=== PATIENT | female | born 1935 | race Caucasian/White ===

== ENCOUNTER 2016-02-21 13:45 | Inpatient (IN) | payer MEDICARE, OTHER ==
[~2016-02-21] VITALS: Ht 162.6 cm; Wt 58.8 kg
[2016-02-21 14:55] VITALS: BP_SYST 140; RESP 16; TEMP 99.1
[2016-02-21 15:02] VITALS: Ht 162.6 cm; Wt 58.8 kg
[2016-02-21] MEDS ORDERED: Furosemide 20 MG/2 ML VIAL IV ONE (15:30)
[2016-02-21] MEDS ORDERED: NEB-ALBUTEROL 2.5 MG/3 ML INH ONE (17:00)
[2016-02-21] MEDS: NEB-ALBUTEROL 2.5 MG/3 ML INH SCH ×2 (17:13→23:31)
[2016-02-21] MEDS ORDERED: KCL CR 20 MEQ TAB PO ONE (19:20)
[2016-02-21 20:08] VITALS: BP_SYST 139; RESP 22; TEMP 98.3
[2016-02-21] MEDS: METHYLPRED SOD SUCC 40 MG VIAL IV SCH ×2 (20:11→23:59)
[2016-02-21] MEDS: SPIRONOLACTONE 25 MG TAB PO SCH (20:12)
[2016-02-21] MEDS: METOPROLOL XL 25 MG TAB PO SCH (20:17)
[2016-02-21] MEDS: LISINOPRIL 5 MG TAB PO SCH (20:17)
[2016-02-21] MEDS: ASPIRIN EC 81 MG TAB PO SCH (20:18)
[2016-02-21] MEDS: LEVOFLOXACIN 750 MG/150 ML 150 ML IV SCH (21:17)
[2016-02-21] MEDS: NEB-BUDESONIDE 0.25 MG INH SCH (23:31)
[2016-02-21 23:42] VITALS: RESP 18
[2016-02-22] VITALS (8 sets, daily range): BP systolic 111–136; RESP 16–20; TEMP 98.5–98.8
[2016-02-22] MEDS: LORAZEPAM 0.5 MG TAB PO PRN ×2 (00:30→23:54)
[2016-02-22] MEDS: NEB-BUDESONIDE 0.25 MG INH SCH ×2 (07:23→20:07)
[2016-02-22] MEDS: NEB-ALBUTEROL 2.5 MG/3 ML INH SCH ×4 (07:23→23:15)
[2016-02-22] MEDS: SPIRONOLACTONE 25 MG TAB PO SCH (08:25)
[2016-02-22] MEDS: METOPROLOL XL 25 MG TAB PO SCH (08:25)
[2016-02-22] MEDS: LISINOPRIL 5 MG TAB PO SCH (08:25)
[2016-02-22] MEDS: ASPIRIN EC 81 MG TAB PO SCH (08:25)
[2016-02-22] MEDS: METHYLPRED SOD SUCC 40 MG VIAL IV SCH ×4 (08:25→23:54)
[2016-02-22] MEDS: LEVOFLOXACIN 750 MG/150 ML 150 ML IV SCH ×2 (08:26→13:10)
[2016-02-22] MEDS: Furosemide 20 MG/2 ML VIAL IV SCH ×3 (08:26→17:51)
[2016-02-22] MEDS ORDERED: MISSING DOSE XX ONE (10:35)
[2016-02-22] MEDS ORDERED: AZITHROMYCIN 500 MG in SODIUM CHLORIDE 0.9% 250 ML IV ONE (10:45)
[2016-02-23] VITALS (7 sets, daily range): BP systolic 109–129; RESP 16–20; TEMP 97.5–98.7
[2016-02-23] MEDS: ACETAMINOPHEN 325 MG TAB PO PRN (00:46)
[2016-02-23] MEDS: NEB-ALBUTEROL 2.5 MG/3 ML INH SCH ×2 (07:28→15:10)
[2016-02-23] MEDS: NEB-BUDESONIDE 0.25 MG INH SCH ×2 (07:28→19:16)
[2016-02-23] MEDS: ASPIRIN EC 81 MG TAB PO SCH (09:23)
[2016-02-23] MEDS: LISINOPRIL 5 MG TAB PO SCH (09:23)
[2016-02-23] MEDS: AZITHROMYCIN 250 MG in SODIUM CHLORIDE 0.9% 250 ML IV SCH (09:23)
[2016-02-23] MEDS: METHYLPRED SOD SUCC 40 MG VIAL IV SCH ×2 (09:23→16:55)
[2016-02-23] MEDS: METOPROLOL XL 25 MG TAB PO SCH (09:24)
[2016-02-23] MEDS: Furosemide 20 MG/2 ML VIAL IV SCH (09:24)
[2016-02-23] MEDS: SPIRONOLACTONE 25 MG TAB PO SCH (09:24)
[2016-02-23] MEDS: Furosemide 40 MG/4 ML VIAL IV SCH (16:57)
[2016-02-23] MEDS: ENOXAPARIN 30 MG/0.3 ML SYR SUBQ SCH (16:57)
[2016-02-23] MEDS: LORAZEPAM 0.5 MG TAB PO PRN (16:57)
[2016-02-23] MEDS: NEB-BROVANA 15 MCG/2 ML INH SCH (19:16)
[2016-02-23] MEDS: DUONEB INH SCH ×2 (19:16→23:23)
[2016-02-23] MEDS: LORAZEPAM 0.5 MG TAB PO SCH (19:57)
[2016-02-24] VITALS (8 sets, daily range): BP systolic 117–142; RESP 18–24; TEMP 97.8–98.6
[2016-02-24] MEDS: METHYLPRED SOD SUCC 40 MG VIAL IV SCH ×4 (00:32→23:12)
[2016-02-24] MEDS: ACETAMINOPHEN 325 MG TAB PO PRN ×3 (00:38→23:13)
[2016-02-24] MEDS: NEB-BROVANA 15 MCG/2 ML INH SCH ×2 (06:51→19:28)
[2016-02-24] MEDS: NEB-BUDESONIDE 0.25 MG INH SCH ×2 (06:51→19:28)
[2016-02-24] MEDS: DUONEB INH SCH ×5 (06:51→23:08)
[2016-02-24] MEDS: SPIRONOLACTONE 25 MG TAB PO SCH (08:42)
[2016-02-24] MEDS: ASPIRIN EC 81 MG TAB PO SCH (08:42)
[2016-02-24] MEDS: METOPROLOL XL 25 MG TAB PO SCH (08:42)
[2016-02-24] MEDS: LISINOPRIL 5 MG TAB PO SCH (08:42)
[2016-02-24] MEDS: Furosemide 40 MG/4 ML VIAL IV SCH ×2 (08:42→16:22)
[2016-02-24] MEDS: ENOXAPARIN 30 MG/0.3 ML SYR SUBQ SCH (08:43)
[2016-02-24] MEDS: LORAZEPAM 0.5 MG TAB PO SCH ×3 (09:00→23:13)
[2016-02-24] MEDS ORDERED: MISSING DOSE XX ONE (11:05)
[2016-02-24] MEDS: AZITHROMYCIN 250 MG in SODIUM CHLORIDE 0.9% 250 ML IV SCH (11:20)
[2016-02-25] VITALS (7 sets, daily range): BP systolic 110–153; RESP 16–20; TEMP 97.2–98.6
[2016-02-25] MEDS: NEB-BROVANA 15 MCG/2 ML INH SCH (06:42)
[2016-02-25] MEDS: DUONEB INH SCH ×3 (06:42→14:27)
[2016-02-25] MEDS: NEB-BUDESONIDE 0.25 MG INH SCH (06:42)
[2016-02-25] MEDS: SPIRONOLACTONE 25 MG TAB PO SCH (08:35)
[2016-02-25] MEDS: LISINOPRIL 5 MG TAB PO SCH (08:35)
[2016-02-25] MEDS: LORAZEPAM 0.5 MG TAB PO SCH ×2 (08:35→15:51)
[2016-02-25] MEDS: ASPIRIN EC 81 MG TAB PO SCH (08:35)
[2016-02-25] MEDS: AZITHROMYCIN 250 MG in SODIUM CHLORIDE 0.9% 250 ML IV SCH (08:36)
[2016-02-25] MEDS: METHYLPRED SOD SUCC 40 MG VIAL IV SCH ×2 (08:36→15:52)
[2016-02-25] MEDS: Furosemide 40 MG/4 ML VIAL IV SCH ×2 (08:36→15:54)
[2016-02-25] MEDS: ENOXAPARIN 30 MG/0.3 ML SYR SUBQ SCH (08:37)
[2016-02-25] MEDS ORDERED: METOPROLOL XL 50 MG TAB PO SCH (09:00)
== END 2016-02-25 17:33 | disposition home or self-care (01) | DRG 190 ==
LOC: ENRESERVDT → ENRESERVTM → TBA 13:45 → ENPENDDIS 13:45 → PCU2 14:19 → 3NT 02-24 14:41
PROVIDERS: ADMIT Internal Medicine Cardiovascular Disease; ATTEND Internal Medicine Cardiovascular Disease
CPT/HCPCS: 36600; 71010; 71250; 80048; 80053; 81003; 82803; 83880; 84484; 85025; 93005; 93306; 94640; 94799; 99223; 99232